=== PATIENT | female | born 1970 | race Caucasian/White ===

== ENCOUNTER 2016-09-19 07:41 | Emergency (ER) | payer OTHER ==
[2016-09-19 07:48] VITALS: BP 101/70
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
[2016-09-19] MEDS ORDERED: SYNTHROID112 MCG PO (08:12)
[2016-09-19] MEDS ORDERED: VITAMIN D250000 UNIT PO (08:12)
== END 2016-09-19 08:38 ==
LOC: ERH
DX: S80.11XA Contusion of right lower leg, initial encounter (principal); S81.831A Puncture wound without foreign body, right lower leg, initial encounter; W22.8XXA Striking against or struck by other objects, initial encounter; Y92.9 Unspecified place or not applicable; Y93.9 Activity, unspecified